=== PATIENT | male | born 1945 | race Caucasian/White ===

== ENCOUNTER 2023-11-13 10:52 | Inpatient (IN) | payer OTHER, SELFPAY ==
[2023-11-13] VITALS (61 sets, daily range): BP systolic 114–150; BP diastolic 55–106; PULSE 83–131; RESP 17–42; TEMP 36.7–37.6; O2SAT 84–97; BMI 36.2
--- NOTE | 2023-11-13 10:54 | XR_ITS ---
WS: [id number] PORTABLE CHEST HISTORY: dyspnea/cough COMPARISON: None available. Partial obscuration of the LEFT hemidiaphragm. Increased opacification at the LEFT lung base. No pleu ral effusion or pneumothorax. Cardiac size: Moderately enlarged heart. Mediastinum/Aorta: Increased opacification centered over the RIGHT infrahilar region. No osseous abnormality seen. LEFT subclavian pacer. IMPRESSION: 1. Partial obscuration of LEFT hemidiaphragm. This may be due to a heart silhouette. A small effusio n or pneumonia in may appear similar. 2. RIGHT infrahilar opacification is likely pneumonia. Recommend follow-up to resolution.
--- NOTE | 2023-11-13 10:55 | CT_ITS ---
WS: [id number] CT HEAD NONCONTRAST HISTORY: Altered mental status TECHNIQUE: Contiguous axial imaging performed through the brain in 2.5 mm imaging. Bone and soft tiss ue windows. Sagittal and coronal reformats reviewed. All CT scans at [facility] use at least one of these dose optimization techniques: automated exposure control; mA and/or kV adjustment per pa tient size (includes targeted exams where dose is matched to clinical indication); or iterative recon struction. DLP: 1216.78 mGy.cm COMPARISON: None available. Moderate atrophy and advanced small vessel ischemic disease. Prior posterior LEFT parietal infarct. R emote infarct with volume loss involving the inferior posterior RIGHT temporal lobe. No acute blood p roducts. Ventricles: Normal size with no hydrocephalus. Paranasal sinuses: As visualized are clear. Mastoid air cells: Well pneumatized. Calvarium and scalp: Skull is intact with no soft tissue edema or swelling. IMPRESSION: 1. No acute intracranial hemorrhage or edema. 2. Moderate atrophy with advanced small vessel ischemic disease. Prior infarcts posterior LEFT parie parmjit and inferoposterior RIGHT temporal lobe.
--- NOTE | 2023-11-13 11:04 | W.ED.GENADLT ---
HPI - General Adult General: Chief complaint: Altered Mental Status Stated complaint: ams Time Seen by Provider: 11/13/23 10:53 Source: patient and EMS Mode of arrival: EMS History of Present Illness: 78-year-old male presents to ER via EMS. He was lethargic and altered on the scene he was also hypotensive he has a history of hypertension and COPD and diabetes mellitus. He is normally supposed to be on 4 L by nasal cannula and uses CPAP he has not been using CPAP or his oxygen recently. He reports generally not feeling well cough shortness of breath and vomiting. Denies any chest pain. He has a history of A-fib with RVR and is on Eliquis for this. He is also on sotalol for rate control. He was tachycardic on the scene but responded well to the fluid bolus he received 2500 mL of Plasma-Lyte prior to arrival. Onset (ago): unknown Relieving factors: none Exacerbating factors: none Associated symptoms: Reports confusion, decreased appetite, malaise, nausea, vomiting and weakness; Deny chest pain, cough, diaphoresis, dyspnea, fevers/chills, headache(s), rash, palpitations, seizures, short of breath or syncope Review of Systems Const: Reports: malaise; Denies: diaphoresis Card: Denies: chest pain, palpitations or syncope Resp: Denies: dyspnea GI: Reports: nausea and vomiting : Denies: dysuria, urinary frequency or urinary urgency Musc: Denies: neck pain or back pain Skin/Breast: Denies: rash Neuro: Reports: confusion; Denies: headache(s) [facility] ED PFSH: Medical History (Updated 11/13/23 @ 13:59 by Tho Jean Baptiste DO) JOSE (obstructive sleep apnea) CVA (cerebral vascular accident) Hypertension BPH (benign prostatic hyperplasia) Diabetes mellitus Hyperlipidemia Neuropathy Atrial fibrillation COPD (chronic obstructive pulmonary disease) Physical Exam Const: GENERAL APPEARANCE: cooperative and comfortable ORIENTATION/CONSCIOUSNESS: Yes awake HENMT: COMMON NORMALS: normocephalic and atraumatic HEAD & SCALP: normocephalic and atraumatic Resp: COMMON NORMALS: normal respiratory effort, No retractions, No use of accessory muscles and clear to auscultation bilaterally AUSCULTATION: clear to auscultation bilaterally Cardio: COMMON NORMALS: regular rate, regular rhythm and No murmurs present (Cardio) RATE: regular rate RHYTHM: regular rhythm GI: COMMON NORMALS: Soft to palpation and No hepatosplenomegaly present AUSCULTATION: Yes normoactive bowel sounds PALPATION: Yes Soft to palpation, No Tenderness to palpation present (GI), No Guarding due to palpation present (GI) and Yes No hepatosplenomegaly present Extremity: COMMON NORMALS: normal to inspection, capillary refill normal and no calf tenderness GENERAL: Yes edema (1+ edema lower extremities) Skin: COMMON NORMALS: no rashes or lesions noted GENERAL SKIN EXAM: no rashes or lesions noted Course Vital Signs: Vital signs: Vital Signs Temperature 98.1 F 11/13/23 10:59 Pulse Rate 131 H 11/13/23 13:36 Respiratory Rate 22 H 11/13/23 13:36 Blood Pressure 115/60 11/13/23 13:36 Pulse Oximetry 93 11/13/23 13:36 [facility] - General Adult Medical Decision Making Acutely encephalopathic with sepsis. He is become mildly tachycardic and hypotension. Patient did respond to fluids he is also given his sotalol which she had not taken earlier. Started on meropenem. Discussed Dr. Nieto orders written Medical Records I reviewed the patient's medical records. Lab Data I reviewed the patient's lab results. 11/13/23 11:16 11/13/23 11:16 Laboratory Results WBC 19.49 10^3/uL (3.29-11.43) H 11/13/23 11:16 RBC 3.61 10^6/uL (3.85-5.65) L 11/13/23 11:16 Hgb 11.40 g/dL (11.27-16.99) 11/13/23 11:16 Hct 34.8 % (37-53) L 11/13/23 11:16 MCV 96.4 fl (82-101) 11/13/23 11:16 MCH 31.6 pg (27-33) 11/13/23 11:16 MCHC 32.8 g/dL (30-55) 11/13/23 11:16 RDW 13.0 % (12.1-15.1) 11/13/23 11:16 Plt Count 309 10^3/cmm (157-399) 11/13/23 11:16 MPV 10.1 fL (7.4-10.4) 11/13/23 11:16 Neut % (Auto) 80.0 % 11/13/23 11:16 Lymph % (Auto) 10.9 % 11/13/23 11:16 Ocean % (Auto) 7.9 % 11/13/23 11:16 Eos % (Auto) 0.1 % 11/13/23 11:16 Baso % (Auto) 0.4 % 11/13/23 11:16 Neut # (Auto) 15.62 10^3/uL (1.8-7.7) H 11/13/23 11:16 Lymph # (Auto) 2.1 10^3/uL (0.8-4.8) 11/13/23 11:16 Ocean # (Auto) 1.5 10^3/uL (0.2-0.9) H 11/13/23 11:16 Eos # (Auto) 0.0 10^3/uL (0.0-0.8) 11/13/23 11:16 Baso # (Auto) 0.1 10^3/uL (0.0-0.1) 11/13/23 11:16 Nucleated RBC % (auto) 0 % 11/13/23 11:16 Nucleated RBCs # 0.0 /100WBC 11/13/23 11:16 Specimen Type Arterial 11/13/23 11:19 Sample Site Brachial, right 11/13/23 11:19 ABG pH 7.36 (7.35-7.45) 11/13/23 11:19 ABG pCO2 46.7 mmHg (35-45) H 11/13/23 11:19 ABG pO2 71.5 mmHg (80.0-100.0) L 11/13/23 11:19 ABG HCO3 26.0 mmol/L (22-26) 11/13/23 11:19 ABG O2 Saturation 94.9 11/13/23 11:19 ABG Base Excess 0.0 mmol/L (-2.0-2.0) 11/13/23 11:19 Mirza Test N/a 11/13/23 11:19 A-a O2 Gradient 2.9 mmHg (5-10) L 11/13/23 11:19 Hematocrit 38.4 % (42-52) L 11/13/23 11:19 Hgb O2 Saturation 92.3 % (95-100) L 11/13/23 11:19 Carboxyhemoglobin 2.5 %THgb (0.4-20.1) 11/13/23 11:19 Methemoglobin 0.3 % (0.4-1.5) L 11/13/23 11:19 Total Hemoglobin 12.5 g/dL (14-18) L 11/13/23 11:19 Sodium 138.0 mmol/L (131-143) 11/13/23 11:19 Potassium 4.2 mmol/L (3.5-5.0) 11/13/23 11:19 Glucose 130.0 mg/dL (70-115) H 11/13/23 11:19 Ionized Calcium 1.1 mmol/L (1.1-1.4) 11/13/23 11:19 O2 Delivery Device Nc 11/13/23 11:19 O2 Liters/Min 3.5 % 11/13/23 11:19 Senior Cost Estimator ID glc 11/13/23 11:19 Sodium 138 mmol/L (136-145) 11/13/23 11:16 Potassium 4.6 mmol/L (3.5-5.1) 11/13/23 11:16 Chloride 97 mmol/L (98-107) L 11/13/23 11:16 Carbon Dioxide 24 mmol/L (22-29) 11/13/23 11:16 Anion Gap 21.6 (5-19) H 11/13/23 11:16 BUN 21 mg/dL (8-23) 11/13/23 11:16 Creatinine 2.3 mg/dL (0.7-1.2) H 11/13/23 11:16 GFR Calculation Not Reportable 11/13/23 11:16 Glucose 128 mg/dL (65-115) H 11/13/23 11:16 Calculated Osmolality 291 mOsm/kg (285-295) 11/13/23 11:16 Lactic Acid 1.6 mmol/L (0.5-2.2) 11/13/23 11:16 Calcium 7.9 mg/dL (8.5-10.5) L 11/13/23 11:16 Total Bilirubin 0.7 mg/dL (0.15-1.2) 11/13/23 11:16 AST 24 U/L (0-40) 11/13/23 11:16 ALT 12 U/L (0-41) 11/13/23 11:16 Alkaline Phosphatase 64 U/L (40-130) 11/13/23 11:16 Creatine Kinase 927 U/L (39-308) H* 11/13/23 11:16 Troponin T Baseline 107 ng/L (0-15) H* 11/13/23 11:16 Total Protein 6.5 g/dL (6.6-8.7) L 11/13/23 11:16 Albumin 3.0 g/dL (3.5-5.2) L 11/13/23 11:16 Globulin 3.5 g/dL (1.3-4.6) 11/13/23 11:16 Lipase 37 U/L (13-60) 11/13/23 11:16 Serum Ketones Negative (Negative) 11/13/23 11:16 All radiology interpretation(s) finalized by discharge Discharge Plan Discharge Patient Disposition: Admitted As Inpatient Admit Provider: Cristobal Nieto Clinical Impression: Sepsis, COPD (chronic obstructive pulmonary disease), Atrial fibrillation, Cystitis Condition: Stable Coding Level of Care Code ED Well Logging Mud Analysis Captain for Albert Gan
--- NOTE | 2023-11-13 11:08 | CT_ITS ---
WS: [id number] CT ABDOMEN AND PELVIS NONCONTRAST HISTORY: Abdominal pain TECHNIQUE: Imaging performed through the abdomen and pelvis. Coronal and sagittal reformats are submi tted. All CT scans at [facility] use at least one of these dose optimization techniques: auto mated exposure control; mA and/or kV adjustment per patient size (includes targeted exams where dose is matched to clinical indication); or iterative reconstruction. DLP: 1739.23 mGy.cm COMPARISON: None available. Lower thorax: Mild dependent changes at the lung bases. Slightly greatest at the LEFT lung base. More likely atelectasis than pneumonia. There is mild pleural thickening. Mild enlargement of the heart. Liver: Normal size liver. No mass or bile duct dilatation. Gallbladder: Normal gallbladder. No pericholecystic fluid or cholelithiasis. No gallbladder wall thic kening. Pancreas: Normal size and attenuation. Normal pancreatic duct. No pancreatitis or mass. Spleen: Normal. Adrenal glands: Normal. No mass. Right kidney: Perinephric stranding. No hydronephrosis. Central calcifications. Left kidney: Perinephric stranding with no obstruction. Aorta: Moderate to severe atherosclerosis abdominal aorta. No aneurysm. Atherosclerosis continues int o the common iliac arteries. No free fluid, intraperitoneal air or significant lymphadenopathy. GI tract: Nondistended stomach. No small bowel obstruction. Several high density calcific like densit ies are present at the cecum. Normal appendix. Numerous diverticula in the descending and sigmoid col on. No evidence for acute diverticulitis. Abdominal wall: Negative. No hernia. Pelvis: Negative. Osseous structures: Degenerative disc disease at L5-S1. No bone destruction. IMPRESSION: 1. No free fluid or free air. 2. Mild bilateral perinephric stranding with no renal obstruction. This may be chronic perinephric s tranding. Also can be seen with urinary tract infection. 3. Mild dependent changes and atelectasis at the LEFT lung base. 4. Cardiomegaly. 5. Sigmoid diverticulosis without acute diverticulitis.
--- NOTE | 2023-11-13 11:10 | ECG_ITS ---
[facility] Test Date: 2023-11-13 Pat Name: Humberto Watt Department: Room: Gender: Male Manager Center: : 1945 Requested By: Tho Sow Order Number: [id number] Genai MD: Ame Arzola M.D. Measurements Intervals [place] Rate: 105 P: 0 SC: 0 QRS: 74 QRSD: 149 T: -38 QT: 365 QTc: 484 Interpretive Statements ATRIAL FIBRILLATION WITH RAPID VENTRICULAR RESPONSE INTRAVENTRICULAR CONDUCTION DELAY [130+ ms QRS DURATION] No previous ECG available for comparison Electronically Signed On 11-13-2023 18:48:21 TARGETING ACQUISITION OFFICER by Ame Arzola M.D. [id number]
[2023-11-13 11:31] LABS: ABG PH Result 7.36 (7.35-7.45); Blood Gas LPM 3.5 %; Blood Gas Operator Identificat glc; Blood Gas Sample Site Brachial, right; Blood Gas Sample Type Arterial; Ionized Calcium Level - ABG 1.1 mmol/L (1.1-1.4); Oxygen Device NC; Potassium Level - ABG 4.2 mmol/L (3.5-5.0)
[2023-11-13 11:33] LABS: ABG PCO2 46.7 mmHg (35-45); Alveolar-Arterial Oxygen Gradi 2.9 mmHg (5-10); Arterial Blood Gas Hematocrit 38.4 % (42-52); Carboxyhemoglobin 2.5 %THgb (0.4-20.1); HGB O2 Sat 92.3 % (95-100); Methemoglobin 0.3 % (0.4-1.5); Oxygen Saturation ABG 94.9; PO2 ABG 71.5 mmHg (80.0-100.0); Total Hemoglobin 12.5 g/dL (14-18)
[2023-11-13 11:34] LABS: Basophils # 0.1 10^3/uL (0.0-0.1); Basophils % 0.4 %; Eosinophils % 0.1 %; Hematocrit 34.8 % (37-53); Lymphocytes # 2.1 10^3/uL (0.8-4.8); Lymphocytes % 10.9 %; Mean Corpuscular HGB Conc 32.8 g/dL (30-55); Mean Corpuscular Hemoglobin 31.6 pg (27-33); Mean Corpuscular Volume 96.4 fl (82-101); Mean Platelet Volume 10.1 fL (7.4-10.4); Monocytes # 1.5 10^3/uL (0.2-0.9); Monocytes % 7.9 %; Neutrophils # 15.62 10^3/uL (1.8-7.7); Nucleated Red Blood Cells % 0 %; Platelet Count 309 10^3/cmm (157-399); Red Blood Count 3.61 10^6/uL (3.85-5.65); White Blood Count 19.49 10^3/uL (3.29-11.43)
[2023-11-13 11:55] LABS: Ketone (Acetest) Serum Negative (Negative)
[2023-11-13 12:05] LABS: Lactic Sepsis W/Reflex 1.6 mmol/L (0.5-2.2)
[2023-11-13 12:07] LABS: Alanine Aminotransferase 12 U/L (0-41); Alkaline Phosphatase 64 U/L (40-130); Anion Gap 21.6 (5-19); Aspartate Amino Transferase 24 U/L (0-40); Blood Urea Nitrogen 21 mg/dL (8-23); Calcium 7.9 mg/dL (8.5-10.5); Carbon Dioxide 24 mmol/L (22-29); Chloride 97 mmol/L (98-107); Globulin 3.5 g/dL (1.3-4.6); Glucose 128 mg/dL (65-115); Lipase 37 U/L (13-60); Osmolality Calculated 291 mOsm/kg (285-295); Potassium 4.6 mmol/L (3.5-5.1); Sodium 138 mmol/L (136-145); Total Bilirubin 0.7 mg/dL (0.15-1.2); Total Protein 6.5 g/dL (6.6-8.7)
[2023-11-13 12:12] LABS: Creatine Phosphokinase 927 U/L (39-308)
[2023-11-13 12:13] LABS: Troponin(5th) Baseline 107 ng/L (0-15)
[2023-11-13] MEDS: meropenem 1,000 MG in sodium chloride 0.9% (plus) 50 ML 100 MG IV (12:43)
--- NOTE | 2023-11-13 12:55 | ECG_ITS ---
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 Measurements Intervals [place] Rate: 102 P: 0 VT: 0 QRS: 81 QRSD: 150 T: -31 QT: 366 QTc: 478 Interpretive Statements ATRIAL FIBRILLATION WITH RAPID VENTRICULAR RESPONSE INTRAVENTRICULAR CONDUCTION DELAY [130+ ms QRS DURATION] Compared to ECG 11/13/2023 11:10:58 No significant changes Electronically Signed On 11-14-2023 19:57:34 CANCER REGISTRAR by Ame Arzola M.D. [id number]
--- NOTE | 2023-11-13 13:23 | XR_ITS ---
WS: [id number] XR hand LT 2V 16531 REASON FOR EXAM: pain FINDINGS: No acute fracture or focal bone lesion. Significant narrowing with moderate subchondral sclerosis and osteophytosis of the DIP and PIP joints of the fingers. Subluxation of the DIP joints of the fingers. No significantly the index finger. Similar arthropathic changes in the 3 joints of the thumb. Mild subluxation at the MP and MCP joint o f the thumb. IMPRESSION: Significant osteoarthritis of the left hand as above.
--- NOTE | 2023-11-13 13:23 | XR_ITS ---
WS: [id number] XR wrist LT 2V 00090 REASON FOR EXAM: pain FINDINGS: No fracture or other focal bone lesion. Mild to moderate narrowing of the radiocarpal joint space with moderate subchondral sclerosis in the subarticular radius. Arterial calcification overlying the radial ulnar joint. IMPRESSION: Moderate arthropathy as above. No acute abnormality identified.
--- NOTE | 2023-11-13 13:43 | P.HP_ITS ---
Providers/Chief Complaint 2 Admitting Physician: Cristobal Nieto MD Primary Care Provider: Arjun Almaraz Chief Complaint: ams History of Present Illness Humberto Watt is a 78 year old male with history of COPD requiring 4 L of oxygen at presents to the hospital with decreased responsiveness. Patient cannot give an adequate history, he appears encephalopathic. The emergency department physician was able to discern from EMS that he was lethargic at the scene, had not been using his CPAP recently, had had some shortness of breath cough and vomiting. Patient denies any diarrhea. Denies any chest pain. Secondary to low blood pressure at the scene he was given 2.5 L fluids. He denies any vomiting to me now, but it is obvious that he has some emesis on his del angel. Apparently last month he was treated for UTI with Levaquin. He has had a heme positive stool in the past. Medicines have yet to be confirmed. I tried his contact number, but it says that phone line has been disconnected. I have not been able to contact his , he has been on hospice [facility] recently but is a full code. He was recently at [facility] in September, for UTI. He has had slight worsening in his health in the last week with some intermittent fevers. He has recently been treated for UTI. He does wear his BiPAP at all times. His 's phone number is [phone]. With being on hospice he had also recently received some doses of morphine. Cannot completely rule out that this has not contributed to his encephalopathy. Review of Systems 2 Card: Denies: chest pain Resp: Reports: dyspnea GI: Denies: abdominal pain, nausea or vomiting Medications/Allergies Home Medications Medication Instructions Recorded Confirmed Last Taken Type alogliptin 12.5 mg tablet tab PO 08/19/22 08/19/22 Unknown History apixaban 5 mg tablet (Eliquis) tab PO 08/19/22 08/19/22 Unknown History ascorbic acid (vitamin C) 250 mg tab PO 08/19/22 08/19/22 Unknown History tablet aspirin 81 mg tablet,delayed tab PO 08/19/22 08/19/22 Unknown History release benzoyl peroxide 10 % topical ml topical 08/19/22 08/19/22 Unknown History cleanser fluticasone 100 mcg-salmeterol 50 inhalation 08/19/22 08/19/22 Unknown History mcg/dose blistr powdr for inhalation (Wixela Inhub) gabapentin 400 mg capsule cap PO 08/19/22 08/19/22 Unknown History ipratropium 0.5 mg-albuterol 3 mg 3 ml inhalation Q6H PRN shortness 08/19/22 08/19/22 Unknown Rx (2.5 mg base)/3 mL nebulization of breath #180 mL soln ipratropium 20 mcg-albuterol 100 2 puff inhalation QID #4 grams 08/19/22 08/19/22 Unknown Rx mcg/actuation mist for inhalation (Combivent Respimat) metformin 1,000 mg tablet tab PO 08/19/22 08/19/22 Unknown History omeprazole 20 mg capsule,delayed cap PO 08/19/22 08/19/22 Unknown History release simvastatin 40 mg tablet tab PO 08/19/22 08/19/22 Unknown History sotalol 120 mg tablet tab PO 08/19/22 08/19/22 Unknown History tamsulosin 0.4 mg capsule cap PO 08/19/22 08/19/22 Unknown History torsemide 10 mg tablet tab PO 08/19/22 08/19/22 Unknown History Allergies Allergy/AdvReac Type Severity Reaction Status Date / Time No Known Allergies Allergy Unverified 08/19/22 11:09 PFSH Acute 2 PFSH: Medical History (Updated 11/13/23 @ 15:44 by Cristobal Nieto MD) JOSE (obstructive sleep apnea) CVA (cerebral vascular accident) Hypertension BPH (benign prostatic hyperplasia) Diabetes mellitus Hyperlipidemia Neuropathy Atrial fibrillation COPD (chronic obstructive pulmonary disease) Vitals/I&O/Wt Last Vital Signs Temp 98.1 F 11/13/23 10:59 Pulse 131 H 11/13/23 13:36 Resp 22 H 11/13/23 13:36 BP 115/60 11/13/23 13:36 Pulse Ox 93 11/13/23 13:36 Weight last 48 hrs Weight 117.934 kg Physical Exam 2 Narrative: General exam is a white male, confused, in no distress. Seems to have a little pain in his left wrist and hand HEENT: Atraumatic normocephalic. Pupils equally round. Oropharynx clear. Neck is supple no lymphadenopathy thyromegaly Cardiovascular irregular, irregular without murmur Lungs diminished breath sounds bilaterally. No wheezes or crackles Abdomen is soft obese nontender with positive bowel sounds. No obvious organomegaly exams deferred Extremities no cyanosis clubbing. 1+ edema is noted bilaterally. Skin no rash Neuro no obvious focal deficits. During exam patient reports she has had a stroke previously. Sepsis: Is patient septic: Yes Focused sepsis exam performed: Yes Date exam was performed: 11/13/23 Time exam was performed: 14:00 Data 11/13/23 11:16 11/13/23 11:16 Other Labs: ABG demonstrates a pH 7.36, pCO2 47, pO2 71 on 3.5 L CK is 927 Troponin 107 and repeat 108 Albumin 3.0, calcium 7.9 Magnesium 1.5 Lactic acid 1.6 Urinalysis 15-25 white blood cells 0-4 reds Coronavirus pending, influenza negative TSH normal Urine and blood cultures obtained Chest x-ray reviewed, right-sided perihilar infiltrate noted. Left chest cardiac device noted. Wrist and hand x-rays show arthritis, no fracture Abdominal pelvis CT demonstrates some mild perinephric stranding, atelectasis lungs, cardiomegaly Head CT no acute changes. I reviewed this as well. Prior infarcts left parietal and temporal lobe noted EKG by my read demonstrates atrial fibrillation, normal axis, rate around 105, intraventricular conduction delay A&P Assessment and plan (1) Pneumonia: Appears to have pneumonia on x-ray Sputum and blood cultures have been sent IV antibiotics consisting of meropenem and vancomycin Flu and COVID have been sent. Flu is negative. COVID is pending. Oxygen as needed. Typically is on 4 L, secondary to his significant COPD uses BiPAP most of the time. BiPAP has been ordered. Monitor closely for improvement CBC, CMP tomorrow (2) UTI (urinary tract infection): Patient has history of recent UTI Possible UTI noted on urinalysis Urine culture Continue meropenem (3) Acute encephalopathy: Patient with acute encephalopathy. This may be multifactorial. This could be secondary to sepsis, denoting endorgan dysfunction Monitor for improvement CT head negative. Hold Neurontin (4) COPD (chronic obstructive pulmonary disease): Patient with history of COPD on 4 L of oxygen uses BiPAP most of the day. Continue BiPAP DuoNeb every 6 hours, budesonide twice daily (5) Atrial fibrillation: Initially appeared to be in atrial fibrillation with rapid ventricular rate. Sotalol was restarted Heart rate is improving less than 100 currently. Continue anticoagulation in the form of Lovenox currently, holding his Eliquis (6) Sepsis: Patient qualifies for sepsis He received a significant amount of fluids in the field over 2 L, and received 2 more liters here. This appears to be adequate fluid resuscitation in this patient who likely has a history of CHF as well. He has evidence of endorgan dysfunction with acute kidney injury, rhabdo, acute encephalopathy Monitor closely for improvement in the emergency department Maintenance fluids Add norepinephrine if needed (7) Acute kidney injury: Patient with evidence of acute kidney injury Follow creatinine closely Place [facility] CT does not show evidence of renal obstruction. 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 This is likely a type II elevation Check echocardiogram Trend troponins Plan Other medical problems as outlined in past medical history Full code Protonix for GI prophylaxis Lovenox for DVT prophylaxis Attestations 2 Medical Necessity Statement*: Will need greater than 2 midnight stay for evaluation and treatment of pneumonia Critical Care Time: The high probability of a clinically significant, sudden or life threatening deterioration of the patient's [renal, pulmonary, neuro, infectious disease] s ystem(s) required my full and direct attention, intervention and personal management. The critical care time is as shown. 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
[2023-11-13 13:47] LABS: Troponin 5 2HR Delta 1.1 ABS# (0-10)
[2023-11-13 13:50] LABS: Troponin 5 2HR 108.1 ng/L (0-15)
[2023-11-13 13:59] LABS: Magnesium 1.5 mg/dL (1.7-2.3); Thyroid Stimulating Hormone 1.69 uIU/mL (0.27-4.20); Uric Acid 6.2 mg/dL (3.4-7.0)
[2023-11-13] MEDS: sotalol 80 mg Tablet 120 MG PO ×2 (14:15→17:20)
[2023-11-13 15:10] LABS: Influenza A by IFA negative (Negative); Influenza B by IFA negative (Negative)
[2023-11-13 15:15] LABS: Bilirubin Urine 1+ (Negative); Blood Urine 3+ (Negative); Glucose Urine UA Norm (Normal); Ketones Urine 1+ (Negative); Leukocyte Esterase Urine Trace (Negative); Nitrate Urine Negative (Negative); Protein Urine 1+ (Negative); Urine Appearance Hazy (CLEAR); Urine Color Amber (Yellow); Urobilinogen Urine 1 mg/dL (Negative); pH Urine 5 (5-7)
[2023-11-13 15:16] LABS: Add Urine Microscopic? YES; Bacteria Urine 1+ /hpf; Mucus Urine TRACE /hpf; RBC Urine 0-4 /hpf (0-2); WBC Urine 15-25 /hpf (0-5)
[2023-11-13 15:17] LABS: Add Urine Culture? Yes; Fine Granular Casts Urine RARE /lpf; Hyaline Casts Urine 0-4 /lpf
[2023-11-13] MEDS: magnesium sulfate premix 2 GM/50 ML PIGGYBACK IV (15:51)
--- NOTE | 2023-11-13 16:23 | USCV_ITS ---
Humberto Watt Age: 78 Gender: M : 1945 Exam Date: 11/13/2023 20:02 Ordering Phys: Cristobal Nieto MD Technologist: NIDA Exam Location: [facility] [place] Indication: afib, hypotension, hx COPD, DM, O2 dependent 4L, on BIPAP unresponsive in ICU-11. BP: 126 / 87 HR: 99 Rhythm: Atrial fibrillation Technical Quality: Adequate MEASUREMENTS (Male / Female) Normal Values 2D ECHO LV Diastolic Diameter PLAX 5.0 cm 4.2 - 5.9 / 3.9 - 5.3 cm LV Systolic Diameter PLAX 3.3 cm IVS Diastolic Thickness 1.0 cm 0.6 - 1.0 / 0.6 - 0.9 cm IVS Systolic Thickness 1.6 cm LVPW Diastolic Thickness 1.0 cm 0.6 - 1.0 / 0.6 - 0.9 cm LVPW Systolic Thickness 1.2 cm LVOT Diameter 2.2 cm LV Ejection Fraction 2D Teich 63.7 % LV Ejection Fraction MOD 2C 54.3 % LV Ejection Fraction 2C AL 54.4 % LA Diameter 4.6 cm LA Width 4.8 cm LA Height 5.8 cm RA Width 5.4 cm RA Height 5.8 cm Aorta at Sinotubular Diameter 3.0 cm IVC Diameter 2.8 cm M-MODE Aortic Annulus Diameter 3.3 cm LA Ao Ratio MM 1.5 MV E Point Septal Separation 0.3 cm DOPPLER AV Peak Velocity 111.0 cm/s LVOT Peak Velocity 55.0 cm/s AV Area Cont Eq vti 1.7 cm squared AV Area Cont Eq pk 1.9 cm squared MV Peak Velocity 108.0 cm/s MV Area PHT 3.3 cm squared MV E' Velocity 43.5 cm/s Mitral E to MV E' Ratio 10.3 Mitral E to LV E' Lateral Ratio 8.2 Mitral E to LV E' Septal Ratio 14.1 TR Peak Velocity 219.2 cm/s TR Peak Gradient 19.2 mmHg TV Peak E Velocity 49.0 cm/s Right Atrial Pressure 10.0 mmHg Pulmonary Artery Systolic Pressu 29.2 mmHg PV Peak Velocity 108.0 cm/s RV Acceleration Time 0.1 s RV Ejection Time 0.3 s RV AcT/ET 0.4 FINDINGS Left Ventricle Normal LV size with borderline low ejection fraction of 50 to 55%. Mild diffuse hypokinesia of the left ventricle Right Ventricle Possibly of normal size and ejection fraction. Right Atrium Mildly increased right atrial size. Left Atrium Mildly increased left atrial size. Mitral Valve Mild mitral annular calcification. Thickened mitral valve. Mild mitral valve regurgitation. Aortic Valve Thickened aortic valve. Tricuspid Valve Mild tricuspid valve regurgitation. Pulmonic Valve Trace pulmonary valve regurgitation. Pericardium No pericardial effusion. Aorta Normal aortic annulus size. IVC Dilated IVC with decreased respiratory variation. CONCLUSIONS Normal LV size with borderline low ejection fraction of 50 to 55%. Mild diffuse hypokinesia of the left ventricle. Mild biatrial enlargement. Mild mitral annular calcification. Thickened mitral valve. Mild mitral valve regurgitation. Mild tricuspid valve regurgitation. Thickened aortic valve. Estimated pulmonary artery peak systolic pressure, possibly within normal limits. Because of poor Doppler signals, this could be misleading. There is no pericardial effusion. Technically difficult study because of poor apical window Dr Ame Arzola MD FAC (Electronically Signed) Final Date: 14 November 2023 09:26 S
[2023-11-13 16:33] LABS: Adenovirus Not Detected (NOT DETECT); Chlamydia Pneumoniae Not Detected (NOT DETECT); Coronavirus 229E,HKU1,NL63,OC4 Not Detected (NOT DETECT); Human Metapneumovirus Not Detected (NOT DETECT); Human Rhinovirus/Enterovirus Not Detected (NOT DETECT); Influenza A Not Detected (NOT DETECT); Influenza A H1 Not Detected (NOT DETECT); Influenza A H1-2009 Not Detected (NOT DETECT); Influenza A H3 Not Detected (NOT DETECT); Influenza B Not Detected (NOT DETECT); Mycoplasma Pneumoniae Not Detected (NOT DETECT); Parainfluenza Virus Type 1 Not Detected (NOT DETECT); Parainfluenza Virus Type 2 Not Detected (NOT DETECT); Parainfluenza Virus Type 3 Not Detected (NOT DETECT); Parainfluenza Virus Type 4 Not Detected (NOT DETECT); Respiratory Syncytial Virus A Not Detected (NOT DETECT); Respiratory Syncytial Virus B Not Detected (NOT DETECT); SARS-COV-2 Not Detected (NOT DETECT)
--- NOTE | 2023-11-13 16:55 | ECG_ITS ---
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 Measurements Intervals Cataldo Rate: 99 P: 0 HI: 0 QRS: 69 QRSD: 141 T: -68 QT: 371 QTc: 477 Interpretive Statements ATRIAL FIBRILLATION INTRAVENTRICULAR CONDUCTION DELAY [130+ ms QRS DURATION] Compared to ECG 11/13/2023 13:12:49 No significant changes Electronically Signed On 11-14-2023 20:04:48 COUNTERINTELLIGENCE ANALYST by Ame Arzola M.D. [id number]
[2023-11-13] MEDS: vancomycin 1,500 MG/300 ML PIGGYBACK 200 MG IV (17:06)
[2023-11-13] MEDS: enoxaparin 120 mg/0.8 mL Syringe SUBCUT (17:07)
[2023-11-13] MEDS: sodium chloride 0.9% 1,000 ML 50 ML IV (17:07)
[2023-11-13 17:20] LABS: Glucose Point of Care 129 mg/dL (70-110)
[2023-11-13] MEDS: ipratropium-albuterol 3 mL Neb INHALATION ×2 (17:28→19:53)
[2023-11-13 17:44] LABS: Troponin 5 6HR 87.01 ng/L (0-15)
[2023-11-13] MEDS: budesonide 0.5 mg/2 mL Neb INHALATION (19:53)
[2023-11-13] MEDS: cefTRIAXone 2,000 MG in sodium chloride 0.9% (plus) 50 ML 100 MG IV (20:42)
[2023-11-13 21:13] LABS: Glucose Point of Care 138 mg/dL (70-110)
[2023-11-13] MEDS: nystatin powder 30 gm Btl 1 APPLIC TOPICAL (23:00)
[2023-11-14] VITALS (232 sets, daily range): BP systolic 92–188; BP diastolic 51–129; PULSE 81–129; RESP 4–47; TEMP 36.9–38.2; O2SAT 93–100; BMI 39.9
[2023-11-14] MEDS: ipratropium-albuterol 3 mL Neb INHALATION ×4 (02:53→20:39)
[2023-11-14] MEDS: enoxaparin 120 mg/0.8 mL Syringe SUBCUT ×2 (04:46→17:40)
[2023-11-14 05:00] LABS: Basophils # 0.1 10^3/uL (0.0-0.1); Basophils % 0.2 %; Hematocrit 32.2 % (37-53); Lymphocytes % 9.1 %; Mean Corpuscular Hemoglobin 31.3 pg (27-33); Mean Corpuscular Volume 97.9 fl (82-101); Mean Platelet Volume 10.2 fL (7.4-10.4); Monocytes # 1.3 10^3/uL (0.2-0.9); Monocytes % 6.1 %; Neutrophils # 18.46 10^3/uL (1.8-7.7); Nucleated Red Blood Cells % 0 %; Platelet Count 279 10^3/cmm (157-399); Red Blood Count 3.29 10^6/uL (3.85-5.65); Red Cell Distribution Width 13.1 % (12.1-15.1); White Blood Count 21.98 10^3/uL (3.29-11.43)
[2023-11-14 05:25] LABS: Alanine Aminotransferase 13 U/L (0-41); Albumin Level 2.8 g/dL (3.5-5.2); Alkaline Phosphatase 67 U/L (40-130); Aspartate Amino Transferase 27 U/L (0-40); Blood Urea Nitrogen 21 mg/dL (8-23); Calcium 8.5 mg/dL (8.5-10.5); Carbon Dioxide 24 mmol/L (22-29); Chloride 100 mmol/L (98-107); Creatinine Clr Calc Pharmacy 54.7281; Globulin 4.3 g/dL (1.3-4.6); Glucose 131 mg/dL (65-115); Magnesium 1.9 mg/dL (1.7-2.3); Osmolality Calculated 287 mOsm/kg (285-295); Sodium 136 mmol/L (136-145); Total Bilirubin 0.7 mg/dL (0.15-1.2); Total Protein 7.1 g/dL (6.6-8.7)
[2023-11-14 05:33] LABS: Creatine Phosphokinase 853 U/L (39-308)
[2023-11-14 07:53] LABS: Glucose Point of Care 150 mg/dL (70-110)
[2023-11-14] MEDS: budesonide 0.5 mg/2 mL Neb INHALATION ×2 (08:18→20:39)
[2023-11-14] MEDS: aspirin 81 mg EC Tablet PO (08:44)
[2023-11-14] MEDS: tamsulosin 0.4 mg Capsule PO (08:45)
[2023-11-14] MEDS: sotalol 80 mg Tablet 120 MG PO ×2 (08:45→17:40)
[2023-11-14] MEDS: pantoprazole 40 mg SDV IVP (08:45)
[2023-11-14] MEDS: insulin lispro 100 unit/1 mL SUBCUT ×4 (08:45→22:11)
[2023-11-14] MEDS: nystatin powder 30 gm Btl 1 APPLIC TOPICAL (08:47)
--- NOTE | 2023-11-14 10:45 | P.PN_ITS ---
Subjective 2 Subjective: Humberto was on BiPAP this morning. He denied any specific pain. Medications: Reviewed: Yes Vitals/I&O/Wt Last Vital Signs Temp 98.5 F 11/14/23 04:35 Pulse 102 H 11/14/23 08:50 Resp 29 H 11/14/23 08:50 BP 175/109 11/14/23 08:50 Pulse Ox 97 11/14/23 08:50 O2 Del Method BiPAP 11/14/23 08:20 FiO2 35 11/14/23 08:20 11/13/23 11/14/23 11/14/23 22:59 06:59 14:59 Intake Total 3938.02 / 3938.02 957 / 4895.02 60 / 60 Output Total 1100 / 1100 Balance 3938.02 / 3938.02 -143 / 3795.02 60 / 60 Weight last 48 hrs Weight 130 kg Weight 117.934 kg Physical Exam 2 Narrative: General exam is a white male, on BiPAP, conversive. Neck is supple no lymphadenopathy thyromegaly Cardiovascular irregular, irregular without murmur Lungs diminished breath sounds bilaterally. No wheezes or crackles Abdomen is soft obese nontender with positive bowel sounds. No obvious organomegaly exams deferred Extremities no cyanosis clubbing. 2+ edema is noted bilaterally. Skin no rash Neuro no obvious focal deficits. During exam patient reports she has had a stroke previously. Urinary Catheter Management: Mcmillan: Cath Placed During This Visit: yes Reason for Continuing Indwelling Catheter: Accurate Measurement of Urinary Output in Critically Ill Patients Urinary Catheter Date of Insertion: 11/13/23 Data 11/14/23 04:35 11/14/23 04:35 Micro: Microbiology 11/13/23 14:37 Urine Culture - Preliminary Urine,Clean Catch A&P Assessment and plan (1) Pneumonia: Appears to have pneumonia on x-ray Sputum and blood cultures have been sent IV antibiotics consisting of cefepime and vancomycin, changed based on previous culture showing resistance to imipenem COVID and flu are negative Oxygen as needed. Typically is on 4 L, secondary to his significant COPD uses BiPAP most of the time. BiPAP has been ordered. Monitor closely for improvement CBC, CMP tomorrow ST eval (2) UTI (urinary tract infection): Patient has history of recent UTI Possible UTI noted on urinalysis Urine culture pending Continue cefepime Previous culture at [facility] with some concern for CRE although results are somewhat confusing. Will try to clarify. (3) Acute encephalopathy: Patient with acute encephalopathy. This may be multifactorial. This could be secondary to sepsis, denoting endorgan dysfunction Monitor for improvement CT head negative. Hold Neurontin (4) COPD (chronic obstructive pulmonary disease): Patient with history of COPD on 4 L of oxygen uses BiPAP most of the day. Continue BiPAP DuoNeb every 6 hours, budesonide twice daily (5) Atrial fibrillation: Initially appeared to be in atrial fibrillation with rapid ventricular rate. Sotalol was restarted Heart rate now improved Continue anticoagulation in the form of Lovenox currently, holding his Eliquis (6) Sepsis: Patient qualifies for sepsis He received a significant amount of fluids in the field over 2 L, and received 2 more liters here. This appears to be adequate fluid resuscitation in this patient who likely has a history of CHF as well. He has evidence of endorgan dysfunction with acute kidney injury, rhabdo, acute encephalopathy He appears to be improving. Norepinephrine is not needed currently. (7) Acute kidney injury: Patient with evidence of acute kidney injury Continue Mcmillan Creatinine improving CT does not show evidence of renal obstruction. 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 This is likely a type II elevation Echo demonstrates an EF of 50 to 55%, mild hypokinesia of left ventricle, mild biatrial enlargement Trend troponins Plan Other medical problems as outlined in past medical history Full code Protonix for GI prophylaxis Lovenox for DVT prophylaxis Attestations 2 Medical Necessity Statement*: Needs continued hospital stay for IV antibiotics secondary to pneumonia, possible UTI in this patient who is fluid overloaded and now requires diuresis. 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
[2023-11-14 10:53] LABS: Glucose Point of Care 144 mg/dL (70-110)
[2023-11-14] MEDS: FUROsemide 10 mg/mL SDV 4mL 40 MG IVP (12:24)
[2023-11-14] MEDS: cefepime 2,000 MG in sodium chloride 0.9% (plus) 50 ML 100 MG IV ×2 (12:24→22:49)
[2023-11-14 17:31] LABS: Glucose Point of Care 164 mg/dL (70-110)
[2023-11-14] MEDS: vancomycin 1,500 MG/300 ML PIGGYBACK 200 MG IV (17:41)
[2023-11-14 22:01] LABS: Glucose Point of Care 150 mg/dL (70-110)
[2023-11-15] VITALS (53 sets, daily range): BP systolic 104–168; BP diastolic 55–110; PULSE 74–130; RESP 15–42; TEMP 37.6; O2SAT 93–99; BMI 40.0
[2023-11-15] MEDS: ipratropium-albuterol 3 mL Neb INHALATION ×4 (02:09→19:52)
[2023-11-15 04:47] LABS: Basophils # 0.1 10^3/uL (0.0-0.1); Basophils % 0.3 %; Eosinophils % 0.2 %; Hematocrit 31.3 % (37-53); Lymphocytes # 1.6 10^3/uL (0.8-4.8); Lymphocytes % 8.6 %; Mean Corpuscular HGB Conc 33.5 g/dL (30-55); Mean Corpuscular Hemoglobin 32.1 pg (27-33); Mean Corpuscular Volume 95.7 fl (82-101); Mean Platelet Volume 9.8 fL (7.4-10.4); Monocytes # 1.2 10^3/uL (0.2-0.9); Monocytes % 6.4 %; Neutrophils # 15.85 10^3/uL (1.8-7.7); Neutrophils % 83.7 %; Nucleated Red Blood Cells % 0 %; Platelet Count 283 10^3/cmm (157-399); Red Blood Count 3.27 10^6/uL (3.85-5.65); Red Cell Distribution Width 12.8 % (12.1-15.1); White Blood Count 18.97 10^3/uL (3.29-11.43)
[2023-11-15 05:12] LABS: Creatine Phosphokinase 302 U/L (39-308)
[2023-11-15 05:13] LABS: Alanine Aminotransferase 16 U/L (0-41); Albumin Level 2.9 g/dL (3.5-5.2); Alkaline Phosphatase 102 U/L (40-130); Anion Gap 15.6 (5-19); Aspartate Amino Transferase 25 U/L (0-40); Blood Urea Nitrogen 17 mg/dL (8-23); Calcium 8.9 mg/dL (8.5-10.5); Carbon Dioxide 27 mmol/L (22-29); Chloride 95 mmol/L (98-107); Globulin 4.6 g/dL (1.3-4.6); Glucose 150 mg/dL (65-115); Magnesium 1.5 mg/dL (1.7-2.3); Osmolality Calculated 282 mOsm/kg (285-295); Potassium 3.6 mmol/L (3.5-5.1); Sodium 134 mmol/L (136-145); Total Bilirubin 0.8 mg/dL (0.15-1.2); Total Protein 7.5 g/dL (6.6-8.7)
[2023-11-15] MEDS: enoxaparin 120 mg/0.8 mL Syringe SUBCUT (05:48)
[2023-11-15 08:39] LABS: Glucose Point of Care 164 mg/dL (70-110)
[2023-11-15] MEDS: pantoprazole 40 mg SDV IVP (08:45)
--- NOTE | 2023-11-15 08:46 | P.PN_ITS ---
Subjective 2 Subjective: Humberto wonders how he is doing. He asks if he was dying. I assured him he was doing a little bit better today. He denies any particular pain. He believes his breathing is okay. No chest discomfort. Medications: Reviewed: Yes Vitals/I&O/Wt Last Vital Signs Temp 99.8 F H 11/14/23 20:00 Pulse 130 H 11/15/23 08:30 Resp 18 11/15/23 08:30 BP 107/93 11/15/23 08:30 Pulse Ox 96 11/15/23 08:30 O2 Del Method Nasal Cannula 11/15/23 07:00 O2 Flow Rate 4 11/15/23 02:15 FiO2 35 11/15/23 04:00 11/14/23 11/15/23 11/15/23 22:59 06:59 14:59 Intake Total 410 / 410 Output Total 2700 / 2700 300 / 3000 Balance -2700 / -2530 -300 / -2830 410 / 410 Weight last 48 hrs Weight 130.209 kg Weight 130 kg Weight 117.934 kg Physical Exam 2 Narrative: General exam is a white male, placed on 3 L after BiPAP taken off Neck is supple no lymphadenopathy thyromegaly Cardiovascular irregular, irregular without murmur Lungs diminished breath sounds bilaterally. No wheezes or crackles Abdomen is soft obese nontender with positive bowel sounds. No obvious organomegaly exams deferred Extremities no cyanosis clubbing. 1+ edema is noted bilaterally. Urinary Catheter Management: Mcmillan: Cath Placed During This Visit: yes Reason for Continuing Indwelling Catheter: Accurate Measurement of Urinary Output in Critically Ill Patients Urinary Catheter Date of Insertion: 11/13/23 Data 11/15/23 04:23 11/15/23 04:23 Micro: Microbiology 11/13/23 14:37 Urine Culture - Preliminary Urine,Clean Catch A&P Assessment and plan (1) Pneumonia: Appears to have pneumonia on x-ray Sputum and blood cultures have been sent IV antibiotics consisting of cefepime and vancomycin, changed based on previous culture showing resistance to imipenem COVID and flu are negative Oxygen as needed. Currently on 3 L, except when sleeping on BiPAP Monitor closely for improvement CBC, CMP tomorrow ST eval appreciated (2) UTI (urinary tract infection): Patient has history of recent UTI Possible UTI noted on urinalysis Urine culture negative today, continue to follow Continue cefepime Previous culture at [facility] with some concern for CRE although results are somewhat confusing. Will try to clarify. (3) Acute encephalopathy: Patient with acute encephalopathy. This may be multifactorial. This could be secondary to sepsis, denoting endorgan dysfunction Monitor for improvement CT head negative. Hold Neurontin (4) COPD (chronic obstructive pulmonary disease): Patient with history of COPD on 4 L of oxygen uses BiPAP most of the day. BiPAP when sleeping DuoNeb every 6 hours, budesonide twice daily (5) Atrial fibrillation: Initially appeared to be in atrial fibrillation with rapid ventricular rate. Sotalol was restarted Heart rate improved, around 100. Occasionally drifts higher. Will add a small dose of diltiazem, monitoring blood pressure closely Continue anticoagulation in the form of Lovenox currently, holding his Eliquis (6) Sepsis: Patient qualifies for sepsis He received a significant amount of fluids in the field over 2 L, and received 2 more liters here. This appears to be adequate fluid resuscitation in this patient who likely has a history of CHF as well. He has evidence of endorgan dysfunction with acute kidney injury, rhabdo, acute encephalopathy He appears to be improving. Norepinephrine is not needed currently. White blood cell count improving (7) Acute kidney injury: Patient with evidence of acute kidney injury Continue Mcmillan Creatinine improving CT does not show evidence of renal obstruction. 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 This is likely a type II elevation Echo demonstrates an EF of 50 to 55%, mild hypokinesia of left ventricle, mild biatrial enlargement Trend troponins Plan Other medical problems as outlined in past medical history Full code Protonix for GI prophylaxis Lovenox for DVT prophylaxis Transfer to [facility] Possible nursing facility placement as he recovers Attestations 2 Medical Necessity Statement*: Needs continued hospital stay for IV antibiotics related to pneumonia. 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
[2023-11-15] MEDS: magnesium sulfate premix 2 GM/50 ML PIGGYBACK IV (08:48)
[2023-11-15] MEDS: budesonide 0.5 mg/2 mL Neb INHALATION ×2 (09:03→19:52)
[2023-11-15] MEDS: sotalol 80 mg Tablet 120 MG PO ×2 (09:28→17:50)
[2023-11-15] MEDS: aspirin 81 mg EC Tablet PO (09:28)
[2023-11-15] MEDS: tamsulosin 0.4 mg Capsule PO (09:28)
[2023-11-15] MEDS: nystatin powder 30 gm Btl 1 APPLIC TOPICAL ×2 (09:30→17:49)
[2023-11-15] MEDS: bumetanide 1 mg Tablet PO (09:30)
[2023-11-15] MEDS: insulin lispro 100 unit/1 mL SUBCUT ×2 (09:32→17:49)
[2023-11-15] MEDS: dilTIAZem 30 mg Tablet PO ×3 (09:32→21:37)
[2023-11-15] MEDS: morphine 4 mg/mL SDV 1 mL 2 MG IVP (10:52)
[2023-11-15] MEDS: cefepime 2,000 MG in sodium chloride 0.9% (plus) 50 ML 100 MG IV ×2 (10:54→17:49)
--- NOTE | 2023-11-15 15:48 | PC.SOCIAL ---
Pg 2 IMM Explained to pt's Pg 2 IMM. No questions voiced. Provided pt a copy. Initialed, dated, & timed a copy & placed in chart.
[2023-11-15] MEDS: vancomycin 1,500 MG/300 ML PIGGYBACK 200 MG IV (16:11)
[2023-11-15 17:43] LABS: Glucose Point of Care 145 mg/dL (70-110)
[2023-11-15] MEDS: pantoprazole DR 40 mg Tablet PO (17:50)
[2023-11-15 21:35] LABS: Glucose Point of Care 136 mg/dL (70-110)
[2023-11-15] MEDS: apixaban 5 mg Tablet PO (21:37)
[2023-11-16] VITALS (26 sets, daily range): BP systolic 121–161; BP diastolic 56–107; PULSE 68–102; RESP 17–26; TEMP 36.6–37.3; O2SAT 93–100
[2023-11-16] MEDS: morphine 4 mg/mL SDV 1 mL 2 MG IVP ×2 (00:22→08:31)
[2023-11-16] MEDS: ipratropium-albuterol 3 mL Neb INHALATION ×4 (02:12→20:06)
[2023-11-16] MEDS: cefepime 2,000 MG in sodium chloride 0.9% (plus) 50 ML 100 MG IV ×3 (02:46→20:14)
[2023-11-16] MEDS: vancomycin 1,500 MG/300 ML PIGGYBACK 200 MG IV ×2 (02:47→15:28)
[2023-11-16 04:59] LABS: Basophils % 0.2 %; Eosinophils % 0.3 %; Lymphocytes # 1.6 10^3/uL (0.8-4.8); Lymphocytes % 9.9 %; Mean Corpuscular HGB Conc 33.3 g/dL (30-55); Mean Corpuscular Hemoglobin 31.6 pg (27-33); Mean Corpuscular Volume 94.9 fl (82-101); Mean Platelet Volume 10.2 fL (7.4-10.4); Monocytes % 6.5 %; Neutrophils # 13.11 10^3/uL (1.8-7.7); Neutrophils % 82.4 %; Nucleated Red Blood Cells % 0 %; Platelet Count 291 10^3/cmm (157-399); Red Blood Count 3.16 10^6/uL (3.85-5.65); Red Cell Distribution Width 12.6 % (12.1-15.1)
[2023-11-16 05:13] LABS: Anion Gap 17.4 (5-19); Carbon Dioxide 26 mmol/L (22-29); Chloride 93 mmol/L (98-107); Glucose 140 mg/dL (65-115); Potassium 3.4 mmol/L (3.5-5.1); Sodium 133 mmol/L (136-145)
[2023-11-16 05:35] LABS: Blood Urea Nitrogen 18 mg/dL (8-23); Calcium 8.8 mg/dL (8.5-10.5); Magnesium 1.7 mg/dL (1.7-2.3); Osmolality Calculated 280 mOsm/kg (285-295)
[2023-11-16 07:05] LABS: Glucose Point of Care 148 mg/dL (70-110)
[2023-11-16] MEDS: budesonide 0.5 mg/2 mL Neb INHALATION ×2 (07:38→20:05)
[2023-11-16] MEDS: insulin lispro 100 unit/1 mL SUBCUT ×3 (08:20→17:29)
[2023-11-16] MEDS: apixaban 5 mg Tablet PO ×2 (08:21→17:29)
[2023-11-16] MEDS: dilTIAZem 30 mg Tablet PO ×3 (08:21→20:15)
[2023-11-16] MEDS: potassium chloride ER 20 mEq Tablet PO (08:21)
[2023-11-16] MEDS: pantoprazole DR 40 mg Tablet PO (08:22)
[2023-11-16] MEDS: sotalol 80 mg Tablet 120 MG PO ×2 (08:22→17:29)
[2023-11-16] MEDS: bumetanide 1 mg Tablet PO (08:22)
[2023-11-16] MEDS: tamsulosin 0.4 mg Capsule PO (08:22)
[2023-11-16] MEDS: aspirin 81 mg EC Tablet PO (08:22)
--- NOTE | 2023-11-16 08:42 | P.PN_ITS ---
Documented by User: SARAY Bermudez STDMAVERICK 11/16/23 09:27 Subjective 2 Subjective: Chest ECharley Watt is a 78-year-old male today he is awake alert and oriented to person place and time and has been moved to CSU from the ICU. He complains of a headache, pain in his neck from the base of his skull to the bottom of his neck, and decreased movement in his left arm. He is being treated for COPD complicated by pneumonia and is on BiPAP . Previous UTI resolved. Vitals/I&O/Wt Last Vital Signs Temp 98.7 F 11/16/23 07:31 Pulse 92 11/16/23 07:39 Resp 17 11/16/23 08:31 BP 159/96 11/16/23 08:32 Pulse Ox 95 11/16/23 08:31 O2 Del Method Nasal Cannula 11/16/23 07:39 O2 Flow Rate 4 11/16/23 07:39 FiO2 4 11/16/23 07:31 11/15/23 11/16/23 11/16/23 22:59 06:59 14:59 Intake Total 590 / 1100 350 / 1450 Output Total 1700 / 1700 Balance -1110 / -600 350 / -250 Weight last 48 hrs Weight 287 lb Weight 287 lb 1 oz Physical Exam 2 Const: GENERAL APPEARANCE: cooperative, in distress, ill appearing and diaphoretic NUTRITIONAL APPEARANCE: obese ORIENTATION/CONSCIOUSNESS: Yes awake, Yes oriented to person, Yes oriented to place and Yes oriented to time HENMT: OTHER: Normocephalic atraumatic Eye: OTHER: Extraocular movements intact Neck/C-Spine: COMMON NORMALS: no JVD Resp: EFFORT & INSPECTION: Yes tachypneic, Yes respiratory distress and Yes labored AUSCULTATION: rhonchi, diminished lung sounds and bronchovesicular breath sounds OTHER: Cough productive of white bloody sputum with clots Cardio: COMMON NORMALS: no JVD and regular rate RATE: regular rate R HYTHM: other (Distant heart sounds) PERIPHERAL PULSES: radial pulses present GI: OTHER: Pain and guarding in the right lower and upper quadrants Extremity: NARRATIVE EXTREMITY EXAM: Movement and sensation intact in the lower extremities bilaterally and R upper extremity, right left upper extremity has decreased movement and weakness Neuro: SENSORIUM/ORIENTATION: Yes oriented to person, Yes oriented to place and Yes oriented to time Skin: NARRATIVE SKIN EXAM: No jaundice, no new bruises, Urinary Catheter Management: Mcmillan: Cath Placed During This Visit: yes Reason for Continuing Indwelling Catheter: Accurate Measurement of Urinary Output in Critically Ill Patients Urinary Catheter Date of Insertion: 11/13/23 Data 11/16/23 04:27 11/16/23 04:27 Micro: Microbiology 11/13/23 14:37 Urine Culture - Final Urine,Clean Catch A&P Assessment and plan (1) Pneumonia: (2) UTI (urinary tract infection): (3) Acute encephalopathy: (4) COPD (chronic obstructive pulmonary disease): (5) Atrial fibrillation: (6) Sepsis: (7) Acute kidney injury: (8) Hypomagnesemia: (9) Rhabdomyosarcoma: (10) Elevated troponin: Coding Level of Care Code 48300 Diagnoses Pneumonia J18.9 UTI (urinary tract infection) N39.0 Acute encephalopathy G93.40 COPD (chronic obstructive pulmonary disease) J44.9 Atrial fibrillation I48.91 Sepsis A41.9 Acute kidney injury N17.9 Hypomagnesemia E83.42 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 No wheezes or crackles Abdomen is soft obese nontender with positive bowel sounds. No obvious organomegaly exam Mcmillan Extremities no cyanosis clubbing. 1+ edema is noted bilaterally. Urinary Catheter Management: Mcmillan: Cath Placed During This Visit: yes Data 11/16/23 04:27 11/16/23 04:27 A&P Assessment and plan (1) Pneumonia: Appears to have pneumonia on x-ray Blood cultures negative to date IV antibiotics consisting of cefepime and vancomycin, changed based on previous culture showing resistance to imipenem COVID and flu are negative Oxygen as needed. Currently on 4 L, BiPAP when sleeping Appears to be improving, no fever in last 24 hours CBC, CMP tomorrow ST [facility] appreciated (2) UTI (urinary tract infection): Patient has history of recent UTI Possible UTI noted on urinalysis Urine culture is negative. Results from [facility] reviewed, CRE unlikely (3) Acute encephalopathy: Patient with acute encephalopathy. This may be multifactorial. This could be secondary to sepsis, denoting endorgan dysfunction Monitor for improvement CT head negative. He appears to be back to his baseline neurologic function He does have some chronic pain for which he is on gabapentin. Will add back low-dose. (4) COPD (chronic obstructive pulmonary disease): Patient with history of COPD on 4 L of oxygen uses BiPAP most of the day. BiPAP when sleeping DuoNeb every 6 hours, budesonide twice daily (5) Atrial fibrillation: Initially appeared to be in atrial fibrillation with rapid ventricular rate. Sotalol was restarted Heart rate improved, around 100. Occasionally drifts higher. Tolerating oral diltiazem with improvement in heart rate. Consider changing to extended release tomorrow. Continue anticoagulation in the form of Lovenox currently, holding his Eliquis (6) Sepsis: Patient qualifies for sepsis He received a significant amount of fluids in the field over 2 L, and received 2 more liters here. This appears to be adequate fluid resuscitation in this patient who likely has a history of CHF as well. He has evidence of endorgan dysfunction with acute kidney injury, rhabdo, acute encephalopathy He appears to be improving. This has now resolved White blood cell count continues to improve (7) Acute kidney injury: Patient with evidence of acute kidney injury Continue Mcmillan Creatinine now normal CT does not show evidence of renal obstruction. 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 This is likely a type II elevation Echo demonstrates an EF of 50 to 55%, mild hypokinesia of left ventricle, mild biatrial enlargement Trend troponins Plan Other medical problems as outlined in past medical history Full code Protonix for GI prophylaxis Changed from Lovenox to apixaban yesterday as surgical procedures thought unlikely Attestations 2 Medical Necessity Statement*: Needs continued hospital stay for treatment of pneumonia with IV antibiotics Diagnoses Pneumonia J18.9 UTI (urinary tract infection) N39.0 Acute encephalopathy G93.40 COPD (chronic obstructive pulmonary disease) J44.9 Atrial fibrillation I48.91 Sepsis A41.9 Acute kidney injury N17.9 Hypomagnesemia E83.42 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
[2023-11-16] MEDS: nystatin powder 30 gm Btl 1 APPLIC TOPICAL (10:51)
[2023-11-16 11:43] LABS: Glucose Point of Care 170 mg/dL (70-110)
[2023-11-16] MEDS: gabapentin 100 mg Capsule PO ×2 (15:28→20:15)
[2023-11-16 16:19] LABS: Glucose Point of Care 172 mg/dL (70-110)
--- NOTE | 2023-11-16 16:38 | PC.NURSE ---
Provider is notified that patient refused the blood draw for the vanc trough. Provider okayed to give afternoon dose.
[2023-11-16 21:12] LABS: Glucose Point of Care 169 mg/dL (70-110)
[2023-11-17] VITALS (9 sets, daily range): BP systolic 135–155; BP diastolic 96–108; PULSE 68–90; RESP 15–23; TEMP 36.3–37.2; O2SAT 96–99
[2023-11-17] MEDS: ipratropium-albuterol 3 mL Neb INHALATION ×3 (02:32→14:00)
[2023-11-17] MEDS: cefepime 2,000 MG in sodium chloride 0.9% (plus) 50 ML 100 MG IV ×2 (03:30→11:05)
[2023-11-17] MEDS: vancomycin 1,500 MG/300 ML PIGGYBACK 200 MG IV (03:30)
[2023-11-17 05:19] LABS: Basophils # 0.1 10^3/uL (0.0-0.1); Basophils % 0.5 %; Eosinophils # 0.2 10^3/uL (0.0-0.8); Eosinophils % 1.8 %; Hematocrit 29.9 % (37-53); Lymphocytes # 1.4 10^3/uL (0.8-4.8); Lymphocytes % 10.5 %; Mean Corpuscular HGB Conc 33.8 g/dL (30-55); Mean Corpuscular Hemoglobin 32.5 pg (27-33); Mean Corpuscular Volume 96.1 fl (82-101); Monocytes # 0.9 10^3/uL (0.2-0.9); Monocytes % 6.7 %; Neutrophils # 10.85 10^3/uL (1.8-7.7); Neutrophils % 79.7 %; Nucleated Red Blood Cells % 0 %; Platelet Count 306 10^3/cmm (157-399); Red Blood Count 3.11 10^6/uL (3.85-5.65); Red Cell Distribution Width 12.9 % (12.1-15.1); White Blood Count 13.61 10^3/uL (3.29-11.43)
[2023-11-17 05:48] LABS: Blood Urea Nitrogen 17 mg/dL (8-23); Calcium 8.9 mg/dL (8.5-10.5); Carbon Dioxide 28 mmol/L (22-29); Chloride 94 mmol/L (98-107); Glucose 125 mg/dL (65-115); Magnesium 1.6 mg/dL (1.7-2.3); Osmolality Calculated 283 mOsm/kg (285-295); Sodium 135 mmol/L (136-145)
[2023-11-17 06:33] LABS: Glucose Point of Care 117 mg/dL (70-110)
[2023-11-17] MEDS: budesonide 0.5 mg/2 mL Neb INHALATION (09:03)
[2023-11-17] MEDS: magnesium sulfate premix 2 GM/50 ML PIGGYBACK IV (09:07)
[2023-11-17] MEDS: potassium chloride oral liq 20 mEq/15 mL UDC 40 MEQ PO (09:08)
[2023-11-17] MEDS: dilTIAZem 30 mg Tablet PO ×2 (09:09→14:49)
[2023-11-17] MEDS: sotalol 80 mg Tablet 120 MG PO (09:09)
[2023-11-17] MEDS: aspirin 81 mg EC Tablet PO (09:10)
[2023-11-17] MEDS: apixaban 5 mg Tablet PO (09:10)
[2023-11-17] MEDS: pantoprazole DR 40 mg Tablet PO (09:10)
[2023-11-17] MEDS: tamsulosin 0.4 mg Capsule PO (09:10)
[2023-11-17] MEDS: gabapentin 100 mg Capsule PO ×2 (09:10→14:49)
[2023-11-17] MEDS: potassium chloride ER 20 mEq Tablet PO (09:10)
[2023-11-17] MEDS: bumetanide 1 mg Tablet PO (09:11)
[2023-11-17] MEDS: nystatin powder 30 gm Btl 1 APPLIC TOPICAL (09:36)
--- NOTE | 2023-11-17 10:35 | P.PN_ITS ---
Subjective 2 Subjective: Chest blayne Watt is a 78-year-old male with a recent history of encephalopathy he is noticeably improved today is oriented to person place time and situation and is conversational and asking to eat. His headache and pain is reportedly improved. He currently wishes to receive hospice home care and go home with his . His cough and congestion are markedly improved. He says his throat is a little scratchy. Vitals/I&O/Wt Last Vital Signs Temp 97.4 F L 11/17/23 08:00 Pulse 84 11/17/23 08:00 Resp 18 11/17/23 08:00 BP 149/108 11/17/23 08:00 Pulse Ox 96 11/17/23 08:00 O2 Del Method Nasal Cannula 11/17/23 08:00 O2 Flow Rate 2 11/17/23 08:00 FiO2 35 11/17/23 04:51 11/16/23 11/17/23 11/17/23 22:59 06:59 14:59 Intake Total 1000 / 1170 350 / 1520 120 / 120 Output Total 1000 / 1475 600 / 2075 450 / 450 Balance 0 / -305 -250 / -555 -330 / -330 Weight last 48 hrs Weight 126 lb 8 oz Weight 287 lb Physical Exam 2 Narrative: General patient is alert and oriented to person place and time, pleasant, able to carry on a conversation HEENT normocephalic atraumatic neck is supple no thyromegaly or lymph extraocular movements intact mucous membranes dry Respiratory breath sounds decreased bilateral, significantly decreased on left upper and lower lobe, prolonged expiratory phase, wheezes present, no rales or rhonchi or crackles currently Cardiac distant heart sounds normal rate and rhythm pulses present bilateral edema 2+ of lower extremities Abdomen obese no organomegaly normal active bowel no pain or tenderness reported Extremities small 1cm red open sore in right axilla sensation intact no pain, 4/5 strength all extremity Neurologic no focal deficit, patient remembers our encounter yesterday Urinary Catheter Management: Mcmillan: Cath Placed During This Visit: yes Reason for Continuing Indwelling Catheter: Accurate Measurement of Urinary Output in Critically Ill Patients Urinary Catheter Date of Insertion: 11/13/23 Data 11/17/23 04:56 11/17/23 04:56 Micro: Microbiology 11/13/23 11:28 Blood Culture - Preliminary Blood 11/13/23 11:18 Blood Culture - Preliminary Blood A&P Assessment and plan (1) Pneumonia: Appears to have pneumonia on x-ray Blood cultures negative to date IV antibiotics consisting of cefepime and vancomycin, changed based on previous culture showing resistance to imipenem COVID and flu are negative Oxygen as needed. Currently on 4 L, BiPAP when sleeping Appears to be improving, no fever in last [address] [facility] appreciated (2) UTI (urinary tract infection): Patient has history of recent UTI Possible UTI noted on urinalysis Urine culture is negative. Results from [facility] reviewed, CRE unlikely (3) Acute encephalopathy: Patient with acute encephalopathy. This may be multifactorial. This could be secondary to sepsis, denoting endorgan dysfunction Monitor for improvement CT head negative. He appears to be back to his baseline neurologic function He does have some chronic pain for which he is on gabapentin. Will add back low-dose. (4) COPD (chronic obstructive pulmonary disease): Patient with history of COPD on 4 L of oxygen uses BiPAP most of the day. BiPAP when sleeping DuoNeb every 6 hours, budesonide twice daily (5) Atrial fibrillation: Initially appeared to be in atrial fibrillation with rapid ventricular rate. Sotalol was restarted Heart rate improved, around 100. Occasionally drifts higher. Tolerating oral diltiazem with improvement in heart rate. Consider changing to extended release tomorrow. Continue anticoagulation in the form of Lovenox currently, holding his Eliquis (6) Sepsis: Patient qualifies for sepsis He received a significant amount of fluids in the field over 2 L, and received 2 more liters here. This appears to be adequate fluid resuscitation in this patient who likely has a history of CHF as well. He has evidence of endorgan dysfunction with acute kidney injury, rhabdo, acute encephalopathy He appears to be improving. This has now resolved White blood cell count continues to improve (7) Acute kidney injury: Patient with evidence of acute kidney injury Creatinine now normal CT does not show evidence of renal obstruction. This was done without contrast (8) Hypomagnesemia: Supplemented and resolved (9) Rhabdomyosarcoma: Resolved (10) Elevated troponin: Troponin is elevated. This is likely a type II elevation Echo demonstrates an EF of 50 to 55%, mild hypokinesia of left ventricle, mild biatrial enlargement Trend troponins Plan Other medical problems as outlined in past medical history Full code Protonix for GI prophylaxis Changed from Lovenox to apixaban yesterday as surgical procedures thought unlikely Coding Level of Care Code Acute Code for Chg Fwd Diagnoses Pneumonia J18.9 UTI (urinary tract infection) N39.0 Acute encephalopathy G93.40 COPD (chronic obstructive pulmonary disease) J44.9 Atrial fibrillation I48.91 Sepsis A41.9 Acute kidney injury N17.9 Hypomagnesemia E83.42 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
[2023-11-17 10:51] LABS: Glucose Point of Care 198 mg/dL (70-110)
--- NOTE | 2023-11-17 11:05 | PM.DCS ---
Discharge Providers Date of Admission: 11/13/23 13:03 Date of Discharge: November 17, 2023 Attending Provider at Admission: Cristobal Nieto MD Attending Provider at Discharge: Cristobal Nieto MD Primary Care Provider: Arjun Almaraz Diagnoses at Discharge Discharge Diagnosis (1) Pneumonia: Status: Acute (2) UTI (urinary tract infection): Status: Acute (3) Acute encephalopathy: Status: Acute (4) COPD (chronic obstructive pulmonary disease): Status: Acute (5) Atrial fibrillation: Status: Acute (6) Sepsis: Status: Acute (7) Acute kidney injury: Status: Acute (8) Hypomagnesemia: Status: Acute (9) Rhabdomyosarcoma: Status: Acute (10) Elevated troponin: Status: Acute Reason for Visit Reason for Visit: [facility] Hospital Course Hospital Course Humberto is a 78-year-old white male, with history of chronic respiratory failure who presented to the emergency department on November 13 with decreased responsiveness. He was on hospice at home. He had received some doses of morphine recently and. He had recently been in the hospital [place], and had a UTI in September. There was some concern of vomiting, and diminished blood pressure when he was picked up at the scene. On arrival to the hospital pneumonia was observed on x-ray. Flu and COVID were negative. There was concern of UTI. He was significantly encephalopathic, CT head negative. He was in A-fib with rapid ventricular rate, and his sotalol was initiated. There was evidence of rhabdo with elevated CK and acute kidney injury and he was septic from his pneumonia with hypotension in the field, and required close follow-up with consideration of norepinephrine. With treatment, with broad-spectrum antibiotics eventually consisting of cefepime and vancomycin he had significant improvement of sepsis. Hypotension resolved and norepinephrine was in fact not needed. CT was done demonstrating no evidence of renal obstruction. Renal function improved with fluids. Hypomagnesemia was noted, and this was supplemented. Elevated troponin was a type II elevation. Echo demonstrated preserved EF with mild hypokinesis of the left ventricle. EF overall 50 to 55%. During the rest of his hospital stay he had gradual improvement. Renal function returned to normal. He became afebrile during his hospital stay. Mental status returned to normal. By November 17 it was thought he could be discharged back to hospice on a course of Augmentin as well as doxycycline. He was initially full code on hospice, and is considering changing this. Ultimately blood cultures were negative at discharge and urine culture was negative at discharge. He was given opportunity ask questions, and his was as well. They agreed with the plan. Physical Exam Narrative: General exam no distress Neck is supple Cardiovascular regular rate and rhythm Lungs clear but with diminished breath sounds bilaterally Abdomen soft obese Extremities trace edema Urinary Catheter Management: Mcmillan: Cath Placed During This Visit: yes Reason for Continuing Indwelling Catheter: Accurate Measurement of Urinary Output in Critically Ill Patients Urinary Catheter Date of Insertion: 11/13/23 Discharge Data Studies Completed and Pending Completed Studies During Hospitalization Category Date Time Status CT abdomen pelvis wo con [id number] Stat Cat Scan 11/13/23 11:[address] head wo con* [id number] Stat Cat Scan 11/13/23 10:55 Completed XR chest 1V portable [id number] Stat Exams 11/13/23 10:54 Completed XR hand LT 2V [id number] Stat Exams 11/13/23 13:23 Completed XR wrist LT 2V [id number] Stat Exams 11/13/23 13:23 Completed CV. echo complete* [id number] Routine Ultrasound 11/13/23 16:23 Completed Pending at discharge Category Date Time Status Blood Cultures ([facility]) Routine Lab 11/13/23 11:18 Results Blood Cultures ([facility]) Routine Lab 11/13/23 11:28 Results MRSA [Methicillin Resistant S.aureu] Routine Lab 11/13/23 16:23 Received Sputum Culture and Gram Stain Routine Lab 11/13/23 16:23 Uncollected Laboratory Results WBC 13.61 10^3/uL (3.29-11.43) H 11/17/23 04:56 RBC 3.11 10^6/uL (3.85-5.65) L 11/17/23 04:56 Hgb 10.10 g/dL (11.27-16.99) L 11/17/23 04:56 Hct 29.9 % (37-53) L 11/17/23 04:56 MCV 96.1 fl (82-101) 11/17/23 04:56 MCH 32.5 pg (27-33) 11/17/23 04:56 MCHC 33.8 g/dL (30-55) 11/17/23 04:56 RDW 12.9 % (12.1-15.1) 11/17/23 04:56 Plt Count 306 10^3/cmm (157-399) 11/17/23 04:56 MPV 10.0 fL (7.4-10.4) 11/17/23 04:56 Neut % (Auto) 79.7 % 11/17/23 04:56 Lymph % (Auto) 10.5 % 11/17/23 04:56 Twiggs % (Auto) 6.7 % 11/17/23 04:56 Eos % (Auto) 1.8 % 11/17/23 04:56 Baso % (Auto) 0.5 % 11/17/23 04:56 Neut # (Auto) 10.85 10^3/uL (1.8-7.7) H 11/17/23 04:56 Lymph # (Auto) 1.4 10^3/uL (0.8-4.8) 11/17/23 04:56 Twiggs # (Auto) 0.9 10^3/uL (0.2-0.9) 11/17/23 04:56 Eos # (Auto) 0.2 10^3/uL (0.0-0.8) 11/17/23 04:56 Baso # (Auto) 0.1 10^3/uL (0.0-0.1) 11/17/23 04:56 Nucleated RBC % (auto) 0 % 11/17/23 04:56 Nucleated RBCs # 0.0 /100WBC 11/17/23 04:56 Specimen Type Arterial 11/13/23 11:19 Sample Site Brachial, right 11/13/23 11:19 ABG pH 7.36 (7.35-7.45) 11/13/23 11:19 ABG pCO2 46.7 mmHg (35-45) H 11/13/23 11:19 ABG pO2 71.5 mmHg (80.0-100.0) L 11/13/23 11:19 ABG HCO3 26.0 mmol/L (22-26) 11/13/23 11:19 ABG O2 Saturation 94.9 11/13/23 11:19 ABG Base Excess 0.0 mmol/L (-2.0-2.0) 11/13/23 11:19 Mirza Test N/a 11/13/23 11:19 A-a O2 Gradient 2.9 mmHg (5-10) L 11/13/23 11:19 Hematocrit 38.4 % (42-52) L 11/13/23 11:19 Hgb O2 Saturation 92.3 % (95-100) L 11/13/23 11:19 Carboxyhemoglobin 2.5 %THgb (0.4-20.1) 11/13/23 11:19 Methemoglobin 0.3 % (0.4-1.5) L 11/13/23 11:19 Total Hemoglobin 12.5 g/dL (14-18) L 11/13/23 11:19 Sodium 138.0 mmol/L (131-143) 11/13/23 11:19 Potassium 4.2 mmol/L (3.5-5.0) 11/13/23 11:19 Glucose 130.0 mg/dL (70-115) H 11/13/23 11:19 Ionized Calcium 1.1 mmol/L (1.1-1.4) 11/13/23 11:19 O2 Delivery Device Nc 11/13/23 11:19 O2 Liters/Min 3.5 % 11/13/23 11:19 Building Rental Superintendent ID glc 11/13/23 11:19 Sodium 135 mmol/L (136-145) L 11/17/23 04:56 Potassium 3.0 mmol/L (3.5-5.1) L 11/17/23 04:56 Chloride 94 mmol/L (98-107) L 11/17/23 04:56 Carbon Dioxide 28 mmol/L (22-29) 11/17/23 04:56 Anion Gap 16.0 (5-19) 11/17/23 04:56 BUN 17 mg/dL (8-23) 11/17/23 04:56 Creatinine 0.9 mg/dL (0.7-1.2) 11/17/23 04:56 GFR Calculation Not Reportable 11/17/23 04:56 Glucose 125 mg/dL (65-115) H 11/17/23 04:56 POC Glucose 198 mg/dL (70-110) H 11/17/23 10:38 Calculated Osmolality 283 mOsm/kg (285-295) L 11/17/23 04:56 Lactic Acid 1.6 mmol/L (0.5-2.2) 11/13/23 11:16 Uric Acid 6.2 mg/dL (3.4-7.0) 11/13/23 11:16 Calcium 8.9 mg/dL (8.5-10.5) 11/17/23 04:56 Magnesium 1.6 mg/dL (1.7-2.3) L 11/17/23 04:56 Total Bilirubin 0.8 mg/dL (0.15-1.2) 11/15/23 04:23 AST 25 U/L (0-40) 11/15/23 04:23 ALT 16 U/L (0-41) 11/15/23 04:23 Alkaline Phosphatase 102 U/L (40-130) 11/15/23 04:23 Creatine Kinase 302 U/L (39-308) 11/15/23 04:23 Troponin T Baseline 107 ng/L (0-15) H* 11/13/23 11:16 Troponin T 120 Minute 108.1 ng/L (0-15) H 11/13/23 13:16 Delta Troponin T 1.1 ABS# (0-10) 11/13/23 13:16 Troponin T Hi Sens 6Hr 87.01 ng/L (0-15) H 11/13/23 17:16 Troponin T Hi Sens 6Hr Delta -19.99 ng/L (0-12) L 11/13/23 17:16 Total Protein 7.5 g/dL (6.6-8.7) 11/15/23 04:23 Albumin 2.9 g/dL (3.5-5.2) L 11/15/23 04:23 Globulin 4.6 g/dL (1.3-4.6) 11/15/23 04:23 Lipase 37 U/L (13-60) 11/13/23 11:16 TSH 1.69 uIU/mL (0.27-4.20) 11/13/23 11:16 Urine Color Joann (Yellow) 11/13/23 14:37 Urine Appearance Hazy (CLEAR) A 11/13/23 14:37 Urine pH 5 (5-7) 11/13/23 14:37 Ur Specific [place] 1.020 (1.005-1.030) 11/13/23 14:37 Urine Protein 1+ (Negative) H 11/13/23 14:37 Urine Glucose (UA) Norm (Normal) 11/13/23 14:37 Urine Ketones 1+ (Negative) H 11/13/23 14:37 Urine Blood 3+ (Negative) H 11/13/23 14:37 Urine Nitrate Negative (Negative) 11/13/23 14:37 Urine Bilirubin 1+ (Negative) H 11/13/23 14:37 Urine Urobilinogen 1 mg/dL (Negative) H 11/13/23 14:37 Ur Leukocyte Esterase Trace (Negative) H 11/13/23 14:37 Urine RBC 0-4 /hpf (0-2) H 11/13/23 14:37 Urine WBC 15-25 /hpf (0-5) H 11/13/23 14:37 Ur Squamous Epith Cells 5-10 /hpf (0-5) H 11/13/23 14:37 Amorphous Sediment Not Reportable 11/13/23 14:37 Urine Bacteria 1+ /hpf (NONE) H 11/13/23 14:37 Hyaline Casts 0-4 /lpf H 11/13/23 14:37 Fine Granular Casts Rare /lpf 11/13/23 14:37 Urine Mucus Trace /hpf 11/13/23 14:37 Serum Ketones Negative (Negative) 11/13/23 11:16 Coronavirus 229E (PCR) Not detected (NOT DETECT) 11/13/23 14:37 Influenza Type A Ag negative (Negative) 11/13/23 14:37 Influenza Type B Ag negative (Negative) 11/13/23 14:37 SARS-CoV-2 (PCR) Not detected (NOT DETECT) 11/13/23 14:37 Vitals Last Vital Signs Temp 97.4 F L 11/17/23 08:00 Pulse 84 11/17/23 08:00 Resp 18 11/17/23 08:00 BP 149/108 11/17/23 08:00 Pulse Ox 96 11/17/23 08:00 O2 Del Method Nasal Cannula 11/17/23 08:00 O2 Flow Rate 2 11/17/23 08:00 FiO2 35 11/17/23 04:51 Discharge Plan Discharge Patient Disposition: Hospice - Home Condition: Stable Prescriptions: New diltiazem HCl 30 mg Tablet 30 mg PO TID Qty: 90 0RF gabapentin 100 mg Capsule 100 mg PO TID Qty: 90 0RF amoxicillin-pot clavulanate 875-125 mg tablet 1 tab PO BID Qty: 12 0RF doxycycline hyclate 100 mg tablet 100 mg PO BID 6 Days Qty: 12 0RF Continued sotalol 120 mg tablet 1 tab PO BID aspirin 81 mg tablet,delayed release (DR/EC) 1 tab PO DAILY torsemide 10 mg tablet 10 tab PO DAILY alogliptin 12.5 mg tablet 1 tab PO DAILY ascorbic acid (vitamin C) 250 mg tablet 1 tab PO DAILY omeprazole 20 mg capsule,delayed release(DR/EC) 1 cap PO QAM metformin 1,000 mg tablet 0.5 tab PO BID Eliquis 5 mg tablet 1 tab PO BID Combivent Respimat 20-100 mcg/actuation mist 2 puff inhalation QID Qty: 4 6RF Aquaphor Ointment 1 applic TOPICAL DAILY ferrous sulfate 325 mg (65 mg iron) Tablet 325 mg PO DAILY nitroglycerin 0.4 mg tablet, sublingual See Rx Instructions .ROUTE .COMPLEX Rx Instructions: DISSOLVE 1 TABLET UNDER THE TONGUE DIRECTED FOR CHEST PAIN NEEDED; IF NO IMPROVEMENT AFTER 1ST DOSE CALL 911. MAY TAKE 2 ADDITIONAL DOSES, 5 MINUTES APART PER NITRO PROTOCOL. Cleocin T 1 % Lotion 1 applic TOPICAL DAILY Vitamin D3 25 mcg (1,000 unit) Tablet 25 mcg PO DAILY Fish Oil 1,000 mg (120 mg-180 mg) Capsule 1 cap PO BID Jardiance 10 mg tablet 10 mg PO DAILY Breztri Aerosphere 160-9-4.8 mcg/actuation Hfa Aerosol Inhaler 2 inh INHALATION BID cyanocobalamin (vitamin B-12) 1,000 mcg Tablet 500 mcg PO DAILY Discontinued gabapentin 400 mg capsule 2 cap PO TID simvastatin 40 mg tablet 0.5 tab PO QPM Discharge Orders: Discharge Order (Routine); Ordered 11/17/23 Ordered By: Cristobal Nieto Referrals: Arjun Almaraz FNP [Primary Care Provider] - 4-7 days Discharge Diet: Usual diet Discharge Activity: Increase activity as tolerated Patient Instructions: Altered Mental Status (ED) Activity Restrictions/Additional Instructions: Discharge home on hospice Resume 4 L of oxygen at home Use BiPAP when sleeping, as needed, Take all antibiotics as prescribed Visit with your primary care provider on follow-up whether statin should be reinitiated. This was held secondary to rhabdomyolysis on admission Discharged into the care of hospice as per family wishes. 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
[2023-11-17] MEDS: insulin lispro 100 unit/1 mL SUBCUT (11:38)
--- NOTE | 2023-11-17 11:48 | PC.SOCIAL ---
IMM Updated Updated pt on IMM. No questions voiced. Provided pt a copy. Initialed, dated, & timed copy in chart.
[2023-11-17 15:05] LABS: Methicillin-Resist S.aureu PCR NOT DETECTED (NOT DETECTED)
--- NOTE | 2023-11-17 15:22 | PC.NURSE ---
discharge instructions given and explained.pt verb understanding of instructions.[facility] here and will transport pt home at this time
== END 2023-11-17 15:23 | disposition hospice, home (50) | DRG 871 ==
LOC: ER 12:22 → ICU 13:30 → CSU 11-15 17:15
PROVIDERS: Admitting Provider Internal Medicine; Emergency Provider Family Medicine; PCP Nurse Practitioner Family; Visit Provider Internal Medicine
DX: A41.9 Sepsis, unspecified organism (principal); J18.9 Pneumonia, unspecified organism; I48.20 Chronic atrial fibrillation, unspecified; J96.10 Chronic respiratory failure, unspecified whether with hypoxia or hypercapnia; N17.9 Acute kidney failure, unspecified; C49.9 Malignant neoplasm of connective and soft tissue, unspecified; G93.40 Encephalopathy, unspecified; J44.9 Chronic obstructive pulmonary disease, unspecified; E11.40 Type 2 diabetes mellitus with diabetic neuropathy, unspecified; Z79.01 Long term (current) use of anticoagulants; G47.33 Obstructive sleep apnea (adult) (pediatric); Z99.89 Dependence on other enabling machines and devices; Z99.81 Dependence on supplemental oxygen; N40.0 Benign prostatic hyperplasia without lower urinary tract symptoms; Z20.822 Contact with and (suspected) exposure to COVID-19; Z86.73 Personal history of transient ischemic attack (TIA), and cerebral infarction without residual deficits; Z87.440 Personal history of urinary (tract) infections; I11.0 Hypertensive heart disease with heart failure; I50.9 Heart failure, unspecified; E83.42 Hypomagnesemia; R79.89 Other specified abnormal findings of blood chemistry; G89.29 Other chronic pain; N30.90 Cystitis, unspecified without hematuria
CPT/HCPCS: 36415; 36416; 36600; 51702; 70450; 71045; 73100; 73120; 74176; 80048; 80051; 80053; 81001; 82009; 82330; 82550; 82805; 82962; 83605; 83690; 83735; 84443; 84484; 84550; 85025; 87040; 87086; 87635; 87641; 87804; 92507; 92523; 92526; 92610; 93005; 93306; 94640; 94660; 96365; 96367; 96372; 96375; 96376; 97110; 97162; 97530; 99285; C9113; J0692; J0696; J1650; J1815; J1940; J2185; J2270; J3370; J3475; J7030; J7626